=== PATIENT | male | born 1945 | race African-American/Black ===

== ENCOUNTER 2016-10-20 15:50 | Inpatient (IN) | payer MEDICARE, MEDICAID ==
[~2016-10-20] VITALS: Ht 190.5 cm; Wt 68.0 kg
[~2016-10-20 15:50] MED LIST: DOCUSATE SODIU100 MG ORAL; LEVEMIR FL100 UNIT/1 SUBQ; MAGNESIUM OXID400 M1 ORAL; MILK OF MA400 MG/51 ORAL; NOVOLOG100 UNIT/3 SUBQ; NOVOLOG100 UNITS1 SUBQ; TAMSULOSIN HCL0.4 MG ORAL; UNOBMED
[2016-10-20 16:22] VITALS: BP 145/77
[2016-10-20 16:33] LABS: BASOPHILS % (AUTO) 1.7 % (0.0-2.0); EOSINOPHILS % (AUTO) 2.8 % (0.0-3.0); LYMPHOCYTES % (AUTO) 22.9 % (20.0-45.0); MEAN CORPUSCULAR HEMOGLOBIN 30.4 PG (27.0-31.0); MEAN CORPUSCULAR HGB CONC 34.1 G/DL (32.0-36.0); MEAN CORPUSCULAR VOLUME 89 FL (80-99); MEAN PLATELET VOLUME 9.3 FL (6.5-10.1); MONOCYTES % (AUTO) 8.9 % (1.0-10.0); NEUTROPHILS % (AUTO) 63.7 % (45.0-75.0); PLATELET COUNT 196 K/UL (150-450); RED BLOOD COUNT 4.53 M/UL (4.70-6.10); RED CELL DISTRIBUTION WIDTH 13.6 % (11.6-14.8); WHITE BLOOD COUNT 8.8 K/UL (4.8-10.8)
[2016-10-20] MEDS ORDERED: AMIODARONE HCL200 MG ORAL (16:36)
[2016-10-20] MEDS ORDERED: ASPIR 8181 MG ORAL (16:36)
[2016-10-20] MEDS ORDERED: ATORVASTATIN CA10 MG ORAL (16:36)
[2016-10-20] MEDS ORDERED: DIGOXIN0.25 MG/5 PO (16:38)
[2016-10-20] MEDS ORDERED: CRANBERRY TABL1 EACH PO (16:38)
[2016-10-20] MEDS ORDERED: CARVEDILOL6.25 MG ORAL (16:38)
[2016-10-20] MEDS ORDERED: METFORMIN HCL1000 M1 ORAL (16:39)
[2016-10-20] MEDS ORDERED: TAMSULOSIN HCL0.4 MG ORAL (16:39)
[2016-10-20] MEDS ORDERED: MULTIVITAMINS1 EAC8 ORAL (16:40)
[2016-10-20] MEDS ORDERED: TYLENOL PO (16:40)
[2016-10-20] MEDS ORDERED: VITAMIN D400 INTLU ORAL (16:41)
[2016-10-20 16:48] LABS: ALANINE AMINOTRANSFERASE 37 U/L (3-41); ALBUMIN/GLOBULIN RATIO 0.9 (1.0-2.7); ANION GAP 17 (5-15); ASPARTATE AMINO TRANSFERASE 32 U/L (5-40); CALCIUM 9.7 mg/dL (8.6-10.2); CARBON DIOXIDE 22 mEQ/L (20-30); CHLORIDE 88 mEQ/L (98-107); CREATININE 0.7 mg/dL (0.7-1.2); GLOMERULAR FILTRATION RATE > 60 mL/min (>60); HEMOLYSIS 5; MAGNESIUM 1.8 mg/dL (1.7-2.5); POTASSIUM 4.9 mEQ/L (3.4-4.9); SODIUM 127 mEQ/L (135-145)
[2016-10-20 17:50] LABS: APPEARANCE,URINE CLEAR; KETONES,URINE 2+ (NEGATIVE); LEUKOCYTE ESTERASE ,URINE 3+ (NEGATIVE); NITRITE,URINE NEGATIVE (NEGATIVE); PH,URINE 5 (4.5-8.0); PROTEIN,URINE NEGATIVE (NEGATIVE); UROBILINOGEN,URINE NORMAL MG/DL (0.0-1.0)
[2016-10-20 17:54] LABS: BACTERIA,URINE FEW /HPF
[2016-10-20 17:55] LABS: YEAST,URINE MODERATE /HPF
[2016-10-20 18:29] VITALS: BP 132/83
[2016-10-20] MEDS ORDERED: DuoNeb 0.5-3(2.5)mg/3ml neb HHN PRN (19:15)
[2016-10-20] MEDS ORDERED: Ketorolac 30mg Inj IV PRN (19:15)
[2016-10-20] MEDS ORDERED: Mylanta II UD 30ml ORAL PRN (19:15)
[2016-10-20] MEDS ORDERED: Morphine Sulfate 2mg/ml Inj IVP PRN (19:15)
[2016-10-20] MEDS ORDERED: Miralax 17gm pkt ORAL PRN (19:15)
[2016-10-20] MEDS ORDERED: Nitroglycerin Subl 0.4mg tab (Bottle Of 25) SL PRN (19:15)
[2016-10-20 19:47] VITALS: BP 141/82
--- NOTE | 2016-10-20 20:01 | Emergency Room Report ---
History of Present Illness General Chief Complaint: General Complaint Source: Patient, Medical Record Present Illness HPI 71-year-old male presents ED for evaluation. [facility]. Patient blood sugar was high at the [facility]. Patient has history of diabetes. States he is compliant with his medications. States he feels fine. Denies any fevers or chills. Denies any dizziness or weakness. Denies nausea or vomiting. No other aggravating relieving factors. Denies any other associated symptoms Allergies: Coded Allergies: No Known Allergies (Unverified , 03/10/16) Patient History Past Medical History: DM, HTN, COPD, psych hx Past Surgical History: none Pertinent Family History: none Social History: Denies: alcohol use, drug use, smoking Immunizations: UTD Reviewed Nursing Documentation: PMH: Agreed, PSxH: Agreed Nursing Documentation-PMH Past Medical History: No History, Except For Hx Cardiac Problems: Yes - afib, paraplegia Hx Hypertension: Yes Hx COPD: Yes Hx Diabetes: Yes Hx Cancer: No Hx Gastrointestinal Problems: No History Of Psychiatric Problem: Yes - anxiety Hx Neurological Problems: No Review of Systems All Other Systems: negative except mentioned in HPI Physical Exam Vital Signs Date Time Temp Pulse Resp B/P Pulse Ox O2 Delivery O2 Flow Rate FiO2 10/20/16 15:44 98.2 78 20 120/78 98 Room Air Sp02 EP Interpretation: reviewed, normal General Appearance: no apparent distress, alert, GCS 15, non-toxic Head: normocephalic, atraumatic Eyes: bilateral eye PERRL, bilateral eye normal inspection ENT: hearing grossly normal, normal pharynx, no angioedema, normal voice Neck: full range of motion, supple/symm/no masses Respiratory: chest non-tender, lungs clear, normal breath sounds, speaking full sentences Cardiovascular #1: regular rate, rhythm, no edema Cardiovascular #2: 2+ carotid (R), 2+ carotid (L), 2+ radial (R), 2+ radial (L) , 2+ dorsalis pedis (R), 2+ dorsalis pedis (L) Gastrointestinal: normal bowel sounds, non tender, soft, non-distended, no guarding, no rebound Rectal: deferred Genitourinary: normal inspection, no CVA tenderness Musculoskeletal: back normal, gait/station normal, normal range of motion, non- tender Neurologic: alert, oriented x3, responsive, motor strength/tone normal, sensory intact, speech normal Psychiatric: judgement/insight normal, memory normal, mood/affect normal, no suicidal/homicidal ideation Reflexes: 3+ bicep (R), 3+ bicep (L), 3+ tricep (R), 3+ tricep (L), 3+ knee (R) , 3+ knee (L) Skin: normal color, no rash, warm/dry, well hydrated Lymphatic: no adenopathy Medical Decision Making Diagnostic Impression: Primary Impression: Uncontrolled diabetes mellitus Qualified Codes: E13.65 - Other specified diabetes mellitus with hyperglycemia ER Course Hospital Course 71-year-old male presenting to ED with elevated fingerstick Differential diagnoses include: ETOH/drug ingestion, sepsis, DKA Clinical course Patient placed on stretcher. On case monitor. After initial history and physical I ordered labs, IV fluids Labs-glucose greater than 500, Na 127, anion gap mildly elevated, bicarbonate ok , electrolytes ok Insulin given, IV fluids given Case discussed with Dr. Degroot and he agreed to accept the patient to his service for further care and support i. I feel this is a highly complex case requiring extensive working including EKG/Rhythm strip, Xray/CT/US, Blood/urine lab work, repeat exams while in ED, and administration of strong opiates/narcotics for pain control, admission to hospital or close patient follow up. diagnosis - uncontrolled DM admitted to floor in serious condition Labs Test 10/20/16 16:06 10/20/16 17:13 White Blood Count 8.8 K/UL (4.8-10.8) Red Blood Count 4.53 M/UL (4.70-6.10) Hemoglobin 13.8 G/DL (14.2-18.0) Hematocrit 40.4 % (42.0-52.0) Mean Corpuscular Volume 89 FL (80-99) Mean Corpuscular Hemoglobin 30.4 PG (27.0-31.0) Mean Corpuscular Hemoglobin Concent 34.1 G/DL (32.0-36.0) Red Cell Distribution Width 13.6 % (11.6-14.8) Platelet Count 196 K/UL (150-450) Mean Platelet Volume 9.3 FL (6.5-10.1) Neutrophils (%) (Auto) 63.7 % (45.0-75.0) Lymphocytes (%) (Auto) 22.9 % (20.0-45.0) Monocytes (%) (Auto) 8.9 % (1.0-10.0) Eosinophils (%) (Auto) 2.8 % (0.0-3.0) Basophils (%) (Auto) 1.7 % (0.0-2.0) Sodium Level 127 mEQ/L (135-145) Potassium Level 4.9 mEQ/L (3.4-4.9) Chloride Level 88 mEQ/L (98-107) Carbon Dioxide Level 22 mEQ/L (20-30) Anion Gap 17 (5-15) Blood Urea Nitrogen 15 mg/dL (7-23) Creatinine 0.7 mg/dL (0.7-1.2) Estimat Glomerular Filtration Rate > 60 mL/min (>60) Glucose Level 526 mg/dL (74-106) Calcium Level 9.7 mg/dL (8.6-10.2) Magnesium Level 1.8 mg/dL (1.7-2.5) Total Bilirubin 0.2 mg/dL (0.0-1.2) Aspartate Amino Transf (AST/SGOT) 32 U/L (5-40) Alanine Aminotransferase (ALT/SGPT) 37 U/L (3-41) Alkaline Phosphatase 76 U/L (40-129) Total Protein 7.0 g/dL (6.6-8.7) Albumin 3.4 g/dL (3.5-5.2) Globulin 3.6 g/dL Albumin/Globulin Ratio 0.9 (1.0-2.7) Acetone Level Positive-small (NEGATIVE) Urine Color Pale yellow Urine Appearance Clear Urine pH 5 (4.5-8.0) Urine Specific [place] 1.015 (1.005-1.035) Urine Protein Negative (NEGATIVE) Urine Glucose (UA) 4+ (NEGATIVE) Urine Ketones 2+ (NEGATIVE) Urine Occult Blood 3+ (NEGATIVE) Urine Nitrite Negative (NEGATIVE) Urine Bilirubin Negative (NEGATIVE) Urine Urobilinogen Normal MG/DL (0.0-1.0) Urine Leukocyte Esterase 3+ (NEGATIVE) Urine RBC 10-15 /HPF (0 - 0) Urine WBC 5-10 /HPF (0 - 0) Urine Squamous Epithelial Cells None /LPF (NONE/OCC) Urine Bacteria Few /HPF (NONE) Urine Yeast Moderate /HPF (NONE) Last Vital Signs Date Time Temp Pulse Resp B/P Pulse Ox O2 Delivery O2 Flow Rate FiO2 10/20/16 19:47 80 13 141/82 100 Room Air 10/20/16 18:29 98.1 Status: improved Disposition: ADMITTED INPATIENT Condition: Serious Referrals: SANG STEVENS (PCP) FRANKLYN KEYES M.D. Oct 20, 2016 20:01
[2016-10-20] MEDS: Carvedilol 6.25mg Tab ORAL SCH (23:04)
[2016-10-20] MEDS: Tamsulosin 0.4mg cap ORAL SCH (23:04)
[2016-10-20] MEDS: Amiodarone 200mg tab ORAL SCH (23:04)
[2016-10-20] MEDS: Heparin 5000 units/ml inj SUBQ SCH (23:07)
[2016-10-20] MEDS: NovoLOG Insulin Flexpen SUBQ SCH (23:09)
[2016-10-21] VITALS: BP 135/76
[2016-10-21] MEDS: Levemir Flexpen SUBQ SCH ×2 (00:34→09:08)
[2016-10-21] MEDS: NovoLOG Insulin Flexpen SUBQ SCH ×6 (06:20→21:16)
[2016-10-21 06:37] LABS: BASOPHILS % (AUTO) 1.4 % (0.0-2.0); EOSINOPHILS % (AUTO) 2.6 % (0.0-3.0); MEAN CORPUSCULAR HEMOGLOBIN 29.5 PG (27.0-31.0); MEAN CORPUSCULAR HGB CONC 33.3 G/DL (32.0-36.0); MEAN CORPUSCULAR VOLUME 89 FL (80-99); MEAN PLATELET VOLUME 10.4 FL (6.5-10.1); MONOCYTES % (AUTO) 7.5 % (1.0-10.0); NEUTROPHILS % (AUTO) 59.4 % (45.0-75.0); PLATELET COUNT 222 K/UL (150-450); RED BLOOD COUNT 4.46 M/UL (4.70-6.10); RED CELL DISTRIBUTION WIDTH 13.2 % (11.6-14.8); WHITE BLOOD COUNT 8.1 K/UL (4.8-10.8)
[2016-10-21 06:57] LABS: ALANINE AMINOTRANSFERASE 32 U/L (3-41); ALBUMIN/GLOBULIN RATIO 0.9 (1.0-2.7); ANION GAP 15 (5-15); ASPARTATE AMINO TRANSFERASE 26 U/L (5-40); CALCIUM 8.7 mg/dL (8.6-10.2); CARBON DIOXIDE 21 mEQ/L (20-30); CHLORIDE 97 mEQ/L (98-107); CHOLESTEROL 122 mg/dL (< 200); CHOLESTEROL/HDL RATIO 2.6 (3.3-4.4); CREATININE 0.6 mg/dL (0.7-1.2); GLOMERULAR FILTRATION RATE > 60 mL/min (>60); HEMOLYSIS 2; LDL CHOLESTEROL (CALC.) 57 mg/dL (60-99); POTASSIUM 4.2 mEQ/L (3.4-4.9); SODIUM 133 mEQ/L (135-145); TOTAL PROTEIN 6.5 g/dL (6.6-8.7)
[2016-10-21 06:59] LABS: THYROID STIMULATING HORMONE 0.896 uIU/mL (0.300-4.500)
[2016-10-21 07:33] LABS: HEMOGLOBIN A1C 16.9 % (< 6.0)
[2016-10-21 08:00] VITALS: BP 111/68
[2016-10-21] MEDS: Carvedilol 6.25mg Tab ORAL SCH ×2 (09:06→21:00)
[2016-10-21] MEDS: Amiodarone 200mg tab ORAL SCH ×2 (09:06→21:00)
[2016-10-21] MEDS: Aspirin EC 81mg tab ORAL SCH (09:06)
[2016-10-21] MEDS: Heparin 5000 units/ml inj SUBQ SCH ×2 (09:07→21:15)
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
[2016-10-21 12:00] VITALS: BP 132/82
[2016-10-21] MEDS ORDERED: Levemir Flexpen SUBQ SCH ×2 (12:00→21:00)
--- NOTE | 2016-10-21 13:57 | History and Physical ---
History of Present Illness General Date patient seen: Oct 21, 2016 Reason for Hospitalization: General Complaint Present Illness HPI 71-year-old male with hx of DM, correction pt presents ED for evaluation of high t blood sugar . States he is compliant with his medications. ( he is not) Denies any dizziness or weakness. Denies nausea or vomiting. No other aggravating relieving factors. He is admitted for uncontrolled DM and severe hyponatremia. Allergies: Coded Allergies: No Known Allergies (Unverified , 03/10/16) Medication History Scheduled Amiodarone Hcl* (Cordarone*), 200 MG ORAL TWICE A DAY, (Reported) Aspirin* (Aspir 81*), 81 MG ORAL DAILY, (Reported) Atorvastatin Calcium* (Lipitor*), 10 MG ORAL BEDTIME, (Reported) Carvedilol* (Carvedilol*), 6.25 MG ORAL BID, (Reported) Cranberry Conc/C/Bacill Coag (Cranberry Tablet), 450 MG PO TWICE A DAY, ( Reported) Digoxin* (Digoxin*), 0.25 MG PO DAILY, (Reported) Metformin Hcl* (Metformin Hcl*), 1,000 MG ORAL BID, (Reported) Multivitamin With Minerals (Multivitamins With Minerals*), 1 TAB ORAL DAILY, ( Reported) Tamsulosin Hcl (Tamsulosin Hcl*), 0.4 MG ORAL BEDTIME, (Reported) Vitamin D (Vitamin D3), 5,000 UNITS ORAL DAILY, (Reported) Scheduled PRN Docusate Sodium* (Docusate Sodium*), 100 MG ORAL TWICE A DAY PRN for Constipation, (Reported) Magnesium Hydroxide* (Milk Of Magnesia*), 30 ML ORAL DAILY PRN for Constipation, (Reported) [Tylenol], 650 MG PO PRN PRN for Fever/Headache/Mild Pain, (Reported) Discontinued Medications Insulin Aspart (Novolog Flexpen), SUBQ AC+HS, (Reported) Discontinued Reason: Therapy completed Insulin Aspart* (Novolog*), 6 SUBQ AC, (Reported) Discontinued Reason: Therapy completed Insulin Detemir (Levemir Flexpen), 18 SUBQ Q12HR, (Reported) Discontinued Reason: Therapy completed Magnesium Oxide (Magnesium Oxide), 400 MG ORAL THREE TIMES A DAY PRN for Constipation, (Reported) Discontinued Reason: Therapy completed Tamsulosin Hcl (Tamsulosin Hcl*), 0.4 MG ORAL Q12HR, (Reported) Discontinued Reason: Therapy completed Unable to Obtain Medications (Unable To Obtain Meds), (Reported) Discontinued Reason: Therapy completed Patient History Healthcare decision maker Resuscitation status Full Code Advanced Directive on File Past Medical/Surgical History Past Medical/Surgical History: (1) Cardiomyopathy (2) CAD (coronary artery disease) (3) Uncontrolled diabetes mellitus Review of Systems Constitutional: Reports: no symptoms Eye: Reports: no symptoms Physical Exam General Appearance: cachetic Lines, tubes and drains: peripheral HEENT: normocephalic, atraumatic Neck: non-tender, normal alignment Respiratory/Chest: chest wall non-tender, lungs clear Cardiovascular/Chest: normal peripheral pulses, normal rate Abdomen: non tender Genitourinary/Rectal: normal genital exam Extremities: normal range of motion Last 24 Hour Vital Signs Date Time Temp Pulse Resp B/P Pulse Ox O2 Delivery O2 Flow Rate FiO2 10/21/16 12:00 97.3 76 20 132/82 100 Room Air 10/21/16 10:12 82 18 Room Air 21 10/21/16 09:06 82 111/68 10/21/16 08:00 97.5 82 20 111/68 99 Room Air 10/21/16 00:00 97.4 77 19 135/76 100 Room Air 10/20/16 23:04 74 129/78 10/20/16 20:45 98.1 80 13 141/82 100 Room Air 10/20/16 19:47 80 13 141/82 100 Room Air 10/20/16 18:29 98.1 78 18 132/83 99 Room Air 10/20/16 16:22 74 17 145/77 100 Room Air 10/20/16 15:44 98.2 78 20 120/78 98 Room Air Intake and Output 10/20/16 10/21/16 19:00 07:00 Intake Total 2000 ml 800 ml Balance 2000 ml 800 ml Intake IV Total 2000 ml 800 ml # Voids 1 3 # Bowel Movements 1 Laboratory Tests Test 10/20/16 16:06 10/20/16 17:13 10/21/16 06:00 White Blood Count 8.8 K/UL (4.8-10.8) 8.1 K/UL (4.8-10.8) Red Blood Count 4.53 M/UL (4.70-6.10) L 4.46 M/UL (4.70-6.10) L Hemoglobin 13.8 G/DL (14.2-18.0) L 13.2 G/DL (14.2-18.0) L Hematocrit 40.4 % (42.0-52.0) L 39.6 % (42.0-52.0) L Mean Corpuscular Volume 89 FL (80-99) 89 FL (80-99) Mean Corpuscular Hemoglobin 30.4 PG (27.0-31.0) 29.5 PG (27.0-31.0) Mean Corpuscular Hemoglobin Concent 34.1 G/DL (32.0-36.0) 33.3 G/DL (32.0-36.0) Red Cell Distribution Width 13.6 % (11.6-14.8) 13.2 % (11.6-14.8) Platelet Count 196 K/UL (150-450) 222 K/UL (150-450) Mean Platelet Volume 9.3 FL (6.5-10.1) 10.4 FL (6.5-10.1) H Neutrophils (%) (Auto) 63.7 % (45.0-75.0) 59.4 % (45.0-75.0) Lymphocytes (%) (Auto) 22.9 % (20.0-45.0) 29.0 % (20.0-45.0) Monocytes (%) (Auto) 8.9 % (1.0-10.0) 7.5 % (1.0-10.0) Eosinophils (%) (Auto) 2.8 % (0.0-3.0) 2.6 % (0.0-3.0) Basophils (%) (Auto) 1.7 % (0.0-2.0) 1.4 % (0.0-2.0) Sodium Level 127 mEQ/L (135-145) L 133 mEQ/L (135-145) L Potassium Level 4.9 mEQ/L (3.4-4.9) 4.2 mEQ/L (3.4-4.9) Chloride Level 88 mEQ/L (98-107) L 97 mEQ/L (98-107) L Carbon Dioxide Level 22 mEQ/L (20-30) 21 mEQ/L (20-30) Anion Gap 17 (5-15) H 15 (5-15) Blood Urea Nitrogen 15 mg/dL (7-23) 12 mg/dL (7-23) Creatinine 0.7 mg/dL (0.7-1.2) 0.6 mg/dL (0.7-1.2) L Estimat Glomerular Filtration Rate > 60 mL/min (>60) > 60 mL/min (>60) Glucose Level 526 mg/dL (74-106) *H 389 mg/dL (74-106) #H Calcium Level 9.7 mg/dL (8.6-10.2) 8.7 mg/dL (8.6-10.2) Magnesium Level 1.8 mg/dL (1.7-2.5) Total Bilirubin 0.2 mg/dL (0.0-1.2) 0.3 mg/dL (0.0-1.2) Aspartate Amino Transf (AST/SGOT) 32 U/L (5-40) 26 U/L (5-40) Alanine Aminotransferase (ALT/SGPT) 37 U/L (3-41) 32 U/L (3-41) Alkaline Phosphatase 76 U/L (40-129) 66 U/L (40-129) Total Protein 7.0 g/dL (6.6-8.7) 6.5 g/dL (6.6-8.7) L Albumin 3.4 g/dL (3.5-5.2) L 3.1 g/dL (3.5-5.2) L Globulin 3.6 g/dL 3.4 g/dL Albumin/Globulin Ratio 0.9 (1.0-2.7) L 0.9 (1.0-2.7) L Acetone Level Positive-small (NEGATIVE) Urine Color Pale yellow Urine Appearance Clear Urine pH 5 (4.5-8.0) Urine Specific [place] 1.015 (1.005-1.035) Urine Protein Negative (NEGATIVE) Urine Glucose (UA) 4+ (NEGATIVE) H Urine Ketones 2+ (NEGATIVE) H Urine Occult Blood 3+ (NEGATIVE) H Urine Nitrite Negative (NEGATIVE) Urine Bilirubin Negative (NEGATIVE) Urine Urobilinogen Normal MG/DL (0.0-1.0) Urine Leukocyte Esterase 3+ (NEGATIVE) H Urine RBC 10-15 /HPF (0 - 0) H Urine WBC 5-10 /HPF (0 - 0) H Urine Squamous Epithelial Cells None /LPF (NONE/OCC) Urine Bacteria Few /HPF (NONE) Urine Yeast Moderate /HPF (NONE) H Hemoglobin A1c 16.9 % (< 6.0) H Triglycerides Level 88 mg/dL (< 150) Cholesterol Level 122 mg/dL (< 200) LDL Cholesterol 57 mg/dL (60-99) L HDL Cholesterol 47 mg/dL (> 60) Cholesterol/HDL Ratio 2.6 (3.3-4.4) L Thyroid Stimulating Hormone (TSH) 0.896 uIU/mL (0.300-4.500) Microbiology Date/Time Source Procedure Growth Status 10/20/16 17:13 Urine,Clean Catch Urine Culture - Preliminary NO GROWTH Resulted Height (Feet): 6 Height (Inches): 3.00 Weight (Pounds): 150 Medications Current Medications Medications (Trade) Dose Ordered Sig/Randell Route PRN Reason Start Time Stop Time Status Last Admin Dose Admin Acetaminophen (Tylenol) 650 mg Q4H PRN ORAL fever 10/20/16 19:15 11/19/16 19:14 Al Hydroxide/Mg Hydroxide (Mylanta II) 30 ml Q6H PRN ORAL dyspepsia 10/20/16 19:15 11/19/16 19:14 Albuterol/ Ipratropium (DuoNeb 0.5-3(2.5)mg/3ml) 3 ml EVERY 4 HOURS PRN HHN Shortness of Breath 10/20/16 19:15 10/25/16 19:14 Amiodarone HCl (Cordarone) 200 mg Q12HR ORAL 10/20/16 22:00 11/19/16 21:59 10/21/16 09:06 Aspirin (Ecotrin) 81 mg DAILY ORAL 10/21/16 09:00 11/20/16 08:59 10/21/16 09:06 Atorvastatin Calcium (Lipitor) 10 mg BEDTIME ORAL 10/20/16 22:00 11/19/16 21:59 10/20/16 23:03 Carvedilol (Coreg) 6.25 mg Q12HR ORAL 10/20/16 22:00 11/19/16 21:59 10/21/16 09:06 Clotrimazole (Lotrimin) 1 applic EVERY 12 HOURS TOPIC 10/21/16 21:00 11/20/16 20:59 Dextrose (Dextrose 50%) STAT PRN IV Hypoglycemia 10/21/16 12:00 11/20/16 11:59 Heparin Sodium (Porcine) (Heparin 5000 units/ml) 5,000 units EVERY 12 HOURS SUBQ 10/20/16 21:00 11/19/16 20:59 10/21/16 09:07 Insulin Aspart (NovoLOG) BEFORE MEALS AND HS SUBQ 10/20/16 22:00 11/19/16 21:59 10/21/16 12:25 Insulin Aspart (NovoLOG) 5 units NOVOTIAC SUBQ 10/21/16 11:50 11/20/16 11:49 10/21/16 12:26 Insulin Detemir (Levemir) 20 units EVERY 12 HOURS SUBQ 10/21/16 21:00 11/20/16 20:59 Ketorolac Tromethamine (Toradol 30mg) 30 mg EVERY 6 HOURS PRN IV moderate pain 4-6 10/20/16 19:15 10/25/16 19:14 Morphine Sulfate (Morphine Sulfate) 2 mg EVERY 4 HOURS PRN IVP severe pain 7-10 10/20/16 19:15 10/27/16 19:14 Nitroglycerin (Ntg) 0.4 mg Q5M X 3 DOSES PRN SL Prn Chest Pain 10/20/16 19:15 11/19/16 19:14 Ondansetron HCl (Zofran) 4 mg Q6H PRN IVP Nausea & Vomiting 10/20/16 19:15 11/19/16 19:14 Polyethylene Glycol (Miralax) 17 gm HSPRN PRN ORAL Constipation 10/20/16 19:15 11/19/16 19:14 Sodium Chloride (Sodium Chloride 1000ml bag) 1,000 ml @ 100 mls/hr Q10H IVLG 10/20/16 20:00 11/19/16 19:59 10/20/16 23:07 Tamsulosin HCl 0.4 mg 0.4 mg BEDTIME ORAL 10/20/16 21:00 11/19/16 20:59 10/20/16 23:04 Temazepam (Restoril) 15 mg HSPRN PRN ORAL Insomnia 10/20/16 19:15 10/27/16 19:14 Assessment/Plan Problem List: (1) Uncontrolled diabetes mellitus ICD Codes: E11.65 - Type 2 diabetes mellitus with hyperglycemia SNOMED: 414566194 Qualifiers: Qualified Codes: E13.65 - Other specified diabetes mellitus with hyperglycemia (2) Hyponatremia ICD Codes: E87.1 - Hypo-osmolality and hyponatremia SNOMED: 83007843 (3) Protein-calorie malnutrition, severe ICD Codes: E43 - Unspecified severe protein-calorie malnutrition SNOMED: 996380715 (4) Anemia ICD Codes: D64.9 - Anemia, unspecified SNOMED: 621213481 (5) CAD (coronary artery disease) ICD Codes: I25.10 - Atherosclerotic heart disease of [place] coronary artery without angina pectoris SNOMED: 28636718 (6) Cardiomyopathy ICD Codes: I42.9 - Cardiomyopathy, unspecified SNOMED: 08380231 Assessment/Plan endo evaluation hyponatremia w/u anemai w/u JUDIT RUSSELL Oct 21, 2016 13:57
[2016-10-21 16:00] VITALS: BP 110/78
[2016-10-21 19:48] VITALS: BP 106/69
[2016-10-21] MEDS: Tamsulosin 0.4mg cap ORAL SCH (21:00)
[2016-10-22] MEDS ORDERED: Levemir Flexpen SUBQ ONE (00:15)
[2016-10-22 04:00] VITALS: BP 121/75
[2016-10-22] MEDS: NovoLOG Insulin Flexpen SUBQ SCH ×7 (06:30→21:03)
[2016-10-22 06:39] LABS: PROTHROMBIN TIME 10.1 SEC (9.30-11.50)
[2016-10-22 07:14] LABS: BASOPHILS % (AUTO) 1.2 % (0.0-2.0); EOSINOPHILS % (AUTO) 3.2 % (0.0-3.0); MEAN CORPUSCULAR HEMOGLOBIN 30.2 PG (27.0-31.0); MEAN CORPUSCULAR HGB CONC 33.8 G/DL (32.0-36.0); MEAN CORPUSCULAR VOLUME 89 FL (80-99); MEAN PLATELET VOLUME 9.2 FL (6.5-10.1); MONOCYTES % (AUTO) 6.8 % (1.0-10.0); NEUTROPHILS % (AUTO) 45.8 % (45.0-75.0); PLATELET COUNT 182 K/UL (150-450); RED BLOOD COUNT 4.23 M/UL (4.70-6.10); RED CELL DISTRIBUTION WIDTH 13.6 % (11.6-14.8); WHITE BLOOD COUNT 7.8 K/UL (4.8-10.8)
[2016-10-22 08:50] LABS: ERYTHROCYTE SEDIMENTATION RATE 34 MM/HR (0-20)
[2016-10-22] MEDS: Aspirin EC 81mg tab ORAL SCH (09:06)
[2016-10-22] MEDS: Carvedilol 6.25mg Tab ORAL SCH ×2 (09:09→20:55)
[2016-10-22] MEDS: Amiodarone 200mg tab ORAL SCH ×2 (09:09→20:55)
[2016-10-22] MEDS: Heparin 5000 units/ml inj SUBQ SCH ×2 (09:10→21:04)
[2016-10-22] MEDS: Levemir Flexpen SUBQ SCH ×2 (09:14→21:02)
[2016-10-22 10:58] LABS: ANISOCYTOSIS 1+; BAND NEUTROPHILS % (MANUAL) 0 % (0-8); BASOPHILS % (MANUAL) 0 % (0-2); EOSINOPHILS % (MANUAL) 2 % (0-3); LYMPHOCYTES % (MANUAL) 46 % (20-45); NEUTROPHILS % (MANUAL) 48 % (45-75); PLATELET ESTIMATE ADEQUATE; PLATELET MORPHOLOGY NORMAL; TOTAL CELLS COUNTED 100
[2016-10-22 11:30] LABS: PATH BLOOD SMEAR/OMC SENT TO PATHOLOGIST; RETICULOCYTE COUNT 0.9 % (0.0-2.0)
[2016-10-22 12:09] VITALS: BP 119/80
--- NOTE | 2016-10-22 15:42 | Pulmonology Progress Note ---
Assessment/Plan Problems: (1) increased CEA (2) Uncontrolled diabetes mellitus (3) Hyponatremia (4) Protein-calorie malnutrition, severe (5) Anemia (6) CAD (coronary artery disease) (7) Cardiomyopathy Assessment/Plan CT abd/pelvis to rule out malignancy GI evaluation endo consult requested. Subjective ROS Limited/Unobtainable: No Interval Events: no new complains Allergies: Coded Allergies: No Known Allergies (Unverified , 03/10/16) Objective Last 24 Hour Vital Signs Date Time Temp Pulse Resp B/P Pulse Ox O2 Delivery O2 Flow Rate FiO2 10/22/16 12:09 97.9 76 19 119/80 99 Room Air 10/22/16 10:03 80 18 Room Air 10/22/16 09:09 81 126/87 10/22/16 04:00 96.6 74 20 121/75 100 Room Air 10/21/16 20:22 76 18 Room Air 10/21/16 19:48 97.9 78 18 106/69 99 Room Air 10/21/16 16:00 97.3 80 20 110/78 98 Room Air Intake and Output 10/21/16 10/22/16 19:00 07:00 Intake Total 700 ml 450 ml Balance 700 ml 450 ml Intake Oral 400 ml 450 ml IV Total 300 ml # Voids 6 2 # Bowel Movements 5 1 General Appearance: cachetic HEENT: normocephalic, atraumatic Respiratory/Chest: chest wall non-tender, lungs clear Cardiovascular: normal peripheral pulses, normal rate Abdomen: normal bowel sounds, soft, non tender Genitourinary: normal external genitalia Extremities: no cyanosis Skin: no rash Microbiology Date/Time Source Procedure Growth Status 10/20/16 19:15 Nasal Nares MRSA Culture - Final NO METHICILLIN RESISTANT STAPH AUREUS... Complete 10/20/16 17:13 Urine,Clean Catch Urine Culture - Preliminary Resulted 10/20/16 19:15 Rectum VRE Culture - Final NO VANCOMYCIN RESISTANT ENTEROCOCCUS ... Complete Laboratory Tests 10/22/16 04:30: White Blood Count 7.8, Red Blood Count 4.23L, Hemoglobin 12.8L, Hematocrit 37.7L , Mean Corpuscular Volume 89, Mean Corpuscular Hemoglobin 30.2, Mean Corpuscular Hemoglobin Concent 33.8, Red Cell Distribution Width 13.6, Platelet Count 182, Mean Platelet Volume 9.2, Neutrophils (%) (Auto) 45.8, Lymphocytes (% ) (Auto) 43.0, Monocytes (%) (Auto) 6.8, Eosinophils (%) (Auto) 3.2H, Basophils (%) (Auto) 1.2, Differential Total Cells Counted 100, Neutrophils % (Manual) 48 , Lymphocytes % (Manual) 46H, Monocytes % (Manual) 4, Eosinophils % (Manual) 2, Basophils % (Manual) 0, Band Neutrophils 0, Platelet Estimate Adequate, Platelet Morphology Normal, Anisocytosis 1+, Erythrocyte Sedimentation Rate 34H , Reticulocyte Count 0.9, Prothrombin Time 10.1, Prothromb Time International Ratio 1.0, Activated Partial Thromboplast Time 28, Iron Level 76, Total Iron Binding Capacity 173L, Percent Iron Saturation 44, Unsaturated Iron Binding 97L , Lactate Dehydrogenase 216, Carcinoembryonic Antigen 15.0H, Vitamin B12 Level 1126H, Folate [Pending] Current Medications Medications (Trade) Dose Ordered Sig/Randell Route PRN Reason Start Time Stop Time Status Last Admin Dose Admin Acetaminophen (Tylenol) 650 mg Q4H PRN ORAL fever 10/20/16 19:15 11/19/16 19:14 Al Hydroxide/Mg Hydroxide (Mylanta II) 30 ml Q6H PRN ORAL dyspepsia 10/20/16 19:15 11/19/16 19:14 Albuterol/ Ipratropium (DuoNeb 0.5-3(2.5)mg/3ml) 3 ml EVERY 4 HOURS PRN HHN Shortness of Breath 10/20/16 19:15 10/25/16 19:14 Amiodarone HCl (Cordarone) 200 mg Q12HR ORAL 10/20/16 22:00 11/19/16 21:59 10/22/16 09:09 Aspirin (Ecotrin) 81 mg DAILY ORAL 10/21/16 09:00 11/20/16 08:59 10/22/16 09:06 Atorvastatin Calcium (Lipitor) 10 mg BEDTIME ORAL 10/20/16 22:00 11/19/16 21:59 10/20/16 23:03 Carvedilol (Coreg) 6.25 mg Q12HR ORAL 10/20/16 22:00 11/19/16 21:59 10/22/16 09:09 Clotrimazole (Lotrimin) 1 applic EVERY 12 HOURS TOPIC 10/21/16 21:00 11/20/16 20:59 10/22/16 09:15 Dextrose (Dextrose 50%) STAT PRN IV Hypoglycemia 10/21/16 12:00 11/20/16 11:59 Heparin Sodium (Porcine) (Heparin 5000 units/ml) 5,000 units EVERY 12 HOURS SUBQ 10/20/16 21:00 11/19/16 20:59 10/22/16 09:10 Insulin Aspart (NovoLOG) BEFORE MEALS AND HS SUBQ 10/20/16 22:00 11/19/16 21:59 10/22/16 12:24 Insulin Aspart (NovoLOG) 5 units NOVOTIAC SUBQ 10/21/16 11:50 11/20/16 11:49 10/22/16 12:24 Insulin Detemir (Levemir) 25 units EVERY 12 HOURS SUBQ 10/22/16 09:00 11/21/16 08:59 10/22/16 09:14 Ketorolac Tromethamine (Toradol 30mg) 30 mg EVERY 6 HOURS PRN IV moderate pain 4-6 10/20/16 19:15 10/25/16 19:14 Morphine Sulfate (Morphine Sulfate) 2 mg EVERY 4 HOURS PRN IVP severe pain 7-10 10/20/16 19:15 10/27/16 19:14 Nitroglycerin (Ntg) 0.4 mg Q5M X 3 DOSES PRN SL Prn Chest Pain 10/20/16 19:15 11/19/16 19:14 Ondansetron HCl (Zofran) 4 mg Q6H PRN IVP Nausea & Vomiting 10/20/16 19:15 11/19/16 19:14 Polyethylene Glycol (Miralax) 17 gm HSPRN PRN ORAL Constipation 10/20/16 19:15 11/19/16 19:14 Sodium Chloride (Sodium Chloride 1000ml bag) 1,000 ml @ 100 mls/hr Q10H IVLG 10/20/16 20:00 11/19/16 19:59 10/21/16 17:24 Tamsulosin HCl 0.4 mg 0.4 mg BEDTIME ORAL 10/20/16 21:00 11/19/16 20:59 10/20/16 23:04 Temazepam (Restoril) 15 mg HSPRN PRN ORAL Insomnia 10/20/16 19:15 10/27/16 19:14 JUDIT RUSSELL Oct 22, 2016 15:42
--- NOTE | 2016-10-22 15:59 | GI Initial Consult Note ---
History of Present Illness General Date patient seen: Oct 22, 2016 Time patient seen: 15:54 Reason for Hospitalization: General Complaint Referring physician: JUDIT MAHAN Reason for Consultation: ELEVATED CEA Present Illness HPI 71-year-old male presents ED for evaluation. Patient resides in assisted. Patient blood sugar was high at the assisted. Patient has history of diabetes. States he is compliant with his medications. States he feels fine. Denies any fevers or chills. Denies any dizziness or weakness. Denies nausea or vomiting. No other aggravating relieving factors. Denies any other associated symptoms GI Consult. HPI as noted above. GI consulted for elevated CEA. Pt seen on floor, awake A&Ox4 NAD with mild agitation and non compliancy. Refused any procedures and wishes to be sent home. Pt presents today with mild anemia and elevated CEA. Denies any N/V/D. Denies any history of endoscopic procedures. Home Meds Reported Medications Vitamin D (Vitamin D3) 400 Unit Tablet, 5000 UNITS ORAL DAILY, TAB 10/20/16 [Tylenol] No Conflict Check, 650 MG PO PRN Y for Fever/Headache/Mild Pain 10/20/16 Multivitamin With Minerals (MULTIVITAMINS WITH MINERALS*) 1 Each Tablet, 1 TAB ORAL DAILY, TAB 10/20/16 Metformin Hcl* (METFORMIN HCL*) 1,000 Mg Tablet, 1000 MG ORAL BID, TAB 10/20/16 Tamsulosin Hcl (TAMSULOSIN HCL*) 0.4 Mg Cap.er.24h, 0.4 MG ORAL BEDTIME, CAP 10/20/16 Digoxin* (DIGOXIN*) 0.25 Mg/5 Ml Solution, 0.25 MG PO DAILY, ML 10/20/16 Cranberry Conc/C/Bacill Coag (CRANBERRY TABLET) 1 Each Tablet, 450 MG PO TWICE A DAY, TAB 10/20/16 Carvedilol* (CARVEDILOL*) 6.25 Mg Tablet, 6.25 MG ORAL BID, TAB 10/20/16 Atorvastatin Calcium* (LIPITOR*) 10 Mg Tablet, 10 MG ORAL BEDTIME, TAB 10/20/16 Aspirin* (ASPIR 81*) 81 Mg Tablet.dr, 81 MG ORAL DAILY, TAB 10/20/16 Amiodarone Hcl* (CORDARONE*) 200 Mg Tablet, 200 MG ORAL TWICE A DAY, TAB 10/20/16 Magnesium Hydroxide* (MILK OF MAGNESIA*) 400 Mg/5 Ml Oral.susp, 30 ML ORAL DAILY Y for Constipation, ML 03/16/16 Docusate Sodium* (DOCUSATE SODIUM*) 100 Mg Capsule, 100 MG ORAL TWICE A DAY Y for Constipation, CAP 03/16/16 Discontinued Reported Medications Tamsulosin Hcl (TAMSULOSIN HCL*) 0.4 Mg Cap.er.24h, 0.4 MG ORAL Q12HR, CAP 03/16/16 Magnesium Oxide (MAGNESIUM OXIDE) 400 Mg Tablet, 400 MG ORAL THREE TIMES A DAY Y for Constipation, #30 TAB 0 Refills 03/16/16 Insulin Detemir (LEVEMIR FLEXPEN) 100 Unit/1 Ml Insuln.pen, 18 SUBQ Q12HR, #300 UNITS 0 Refills 03/16/16 Insulin Aspart* (NOVOLOG*) 100 Unit/1 Ml Insuln.pen, 6 SUBQ AC, #1 EA 0 Refills 03/16/16 Insulin Aspart (Novolog Flexpen) 100 Unit/1 Ml Insuln.pen, SUBQ AC+HS 03/16/16 Unable to Obtain Medications (UNABLE TO OBTAIN MEDS) 1 Ea Ea 03/11/16 Med list reviewed/reconciled: Yes Allergies: Coded Allergies: No Known Allergies (Unverified , 03/10/16) Patient History History Provided By: Patient, Medical Record PMH Narrative Past Medical History: DM, HTN, COPD, psych hx Past Surgical History: none Pertinent Family History: none Social History: Denies: alcohol use, drug use, smoking Immunizations: UTD Reviewed Nursing Documentation: PMH: Agreed, PSxH: Agreed Nursing Documentation-PM Past Medical History: No History, Except For Hx Cardiac Problems: Yes - afib, paraplegia Hx Hypertension: Yes Hx COPD: Yes Hx Diabetes: Yes Hx Cancer: No Hx Gastrointestinal Problems: No History Of Psychiatric Problem: Yes - anxiety Hx Neurological Problems: No Review of Systems All Other Systems: negative except mentioned in HPI Physical Exam Vital Signs Date Time Temp Pulse Resp B/P Pulse Ox O2 Delivery O2 Flow Rate FiO2 10/20/16 15:44 98.2 78 20 120/78 98 Room Air 10/21/16 10:12 21 Sp02 EP Interpretation: reviewed Labs Laboratory Tests Test 10/22/16 04:30 White Blood Count 7.8 K/UL (4.8-10.8) Red Blood Count 4.23 M/UL (4.70-6.10) L Hemoglobin 12.8 G/DL (14.2-18.0) L Hematocrit 37.7 % (42.0-52.0) L Mean Corpuscular Volume 89 FL (80-99) Mean Corpuscular Hemoglobin 30.2 PG (27.0-31.0) Mean Corpuscular Hemoglobin Concent 33.8 G/DL (32.0-36.0) Red Cell Distribution Width 13.6 % (11.6-14.8) Platelet Count 182 K/UL (150-450) Mean Platelet Volume 9.2 FL (6.5-10.1) Neutrophils (%) (Auto) 45.8 % (45.0-75.0) Lymphocytes (%) (Auto) 43.0 % (20.0-45.0) Monocytes (%) (Auto) 6.8 % (1.0-10.0) Eosinophils (%) (Auto) 3.2 % (0.0-3.0) H Basophils (%) (Auto) 1.2 % (0.0-2.0) Differential Total Cells Counted 100 Neutrophils % (Manual) 48 % (45-75) Lymphocytes % (Manual) 46 % (20-45) H Monocytes % (Manual) 4 % (1-10) Eosinophils % (Manual) 2 % (0-3) Basophils % (Manual) 0 % (0-2) Band Neutrophils 0 % (0-8) Platelet Estimate Adequate Platelet Morphology Normal Anisocytosis 1+ Erythrocyte Sedimentation Rate 34 MM/HR (0-20) H Reticulocyte Count 0.9 % (0.0-2.0) Prothrombin Time 10.1 SEC (9.30-11.50) Prothromb Time International Ratio 1.0 (0.9-1.1) Activated Partial Thromboplast Time 28 SEC (23-33) Iron Level 76 ug/dL (59-158) Total Iron Binding Capacity 173 ug/dL (250-400) L Percent Iron Saturation 44 % (15-50) Unsaturated Iron Binding 97 ug/dL (112-346) L Lactate Dehydrogenase 216 U/L (135-230) Carcinoembryonic Antigen 15.0 ng/mL H Vitamin B12 Level 1126 pg/mL (211-946) H Folate Pending General Appearance: well appearing, no apparent distress, alert Head: normocephalic EENT: normal ENT inspection Neck: full range of motion, supple Respiratory: normal breath sounds, no respiratory distress Cardiovascular: normal rate Gastrointestinal: normal inspection, non tender, soft, normal bowel sounds Rectal: normal exam Musculoskeletal: normal inspection, back normal Neurologic: normal inspection, alert, oriented x3, responsive Psychiatric: normal inspection, judgement/insight normal, memory normal Skin: normal inspection, normal color, no rash, normal turgor Lymphatic: normal inspection, no adenopathy Current Medications Current Medications Medications (Trade) Dose Ordered Sig/Randell Route PRN Reason Start Time Stop Time Status Last Admin Dose Admin Acetaminophen (Tylenol) 650 mg Q4H PRN ORAL fever 10/20/16 19:15 11/19/16 19:14 Al Hydroxide/Mg Hydroxide (Mylanta II) 30 ml Q6H PRN ORAL dyspepsia 10/20/16 19:15 11/19/16 19:14 Albuterol/ Ipratropium (DuoNeb 0.5-3(2.5)mg/3ml) 3 ml EVERY 4 HOURS PRN HHN Shortness of Breath 10/20/16 19:15 10/25/16 19:14 Amiodarone HCl (Cordarone) 200 mg Q12HR ORAL 10/20/16 22:00 11/19/16 21:59 10/22/16 09:09 Aspirin (Ecotrin) 81 mg DAILY ORAL 10/21/16 09:00 11/20/16 08:59 10/22/16 09:06 Atorvastatin Calcium (Lipitor) 10 mg BEDTIME ORAL 10/20/16 22:00 11/19/16 21:59 10/20/16 23:03 Carvedilol (Coreg) 6.25 mg Q12HR ORAL 10/20/16 22:00 11/19/16 21:59 10/22/16 09:09 Clotrimazole (Lotrimin) 1 applic EVERY 12 HOURS TOPIC 10/21/16 21:00 11/20/16 20:59 10/22/16 09:15 Dextrose (Dextrose 50%) STAT PRN IV Hypoglycemia 10/21/16 12:00 11/20/16 11:59 Heparin Sodium (Porcine) (Heparin 5000 units/ml) 5,000 units EVERY 12 HOURS SUBQ 10/20/16 21:00 11/19/16 20:59 10/22/16 09:10 Insulin Aspart (NovoLOG) BEFORE MEALS AND HS SUBQ 10/20/16 22:00 11/19/16 21:59 10/22/16 12:24 Insulin Aspart (NovoLOG) 5 units NOVOTIAC SUBQ 10/21/16 11:50 11/20/16 11:49 10/22/16 12:24 Insulin Detemir (Levemir) 25 units EVERY 12 HOURS SUBQ 10/22/16 09:00 11/21/16 08:59 10/22/16 09:14 Ketorolac Tromethamine (Toradol 30mg) 30 mg EVERY 6 HOURS PRN IV moderate pain 4-6 10/20/16 19:15 10/25/16 19:14 Morphine Sulfate (Morphine Sulfate) 2 mg EVERY 4 HOURS PRN IVP severe pain 7-10 10/20/16 19:15 10/27/16 19:14 Nitroglycerin (Ntg) 0.4 mg Q5M X 3 DOSES PRN SL Prn Chest Pain 10/20/16 19:15 11/19/16 19:14 Ondansetron HCl (Zofran) 4 mg Q6H PRN IVP Nausea & Vomiting 10/20/16 19:15 11/19/16 19:14 Polyethylene Glycol (Miralax) 17 gm HSPRN PRN ORAL Constipation 10/20/16 19:15 11/19/16 19:14 Sodium Chloride (Sodium Chloride 1000ml bag) 1,000 ml @ 100 mls/hr Q10H IVLG 10/20/16 20:00 11/19/16 19:59 10/21/16 17:24 Tamsulosin HCl 0.4 mg 0.4 mg BEDTIME ORAL 10/20/16 21:00 11/19/16 20:59 10/20/16 23:04 Temazepam (Restoril) 15 mg HSPRN PRN ORAL Insomnia 10/20/16 19:15 10/27/16 19:14 GI: Plan Problems: (1) Anemia (2) increased CEA (3) Protein-calorie malnutrition, severe (4) Uncontrolled diabetes mellitus Plan recommended EGD/colonoscopy given elevated CEA and anemia >> REFUSED by patient , wishes to go home ordered chest/a/p CT r/o mass maintain ADA diet DM mgmt bowel regime >> colace + miralax H2B GI prophylaxis outpatient colonoscopy Discussed with Dr. Ferrell. Thank you for referring this patient, we will follow. Sylvia Velazquez N.P. Oct 22, 2016 15:59
[2016-10-22 16:33] VITALS: BP 120/70
[2016-10-22] MEDS: Docusate 100mg cap ORAL SCH (18:42)
[2016-10-22 20:23] VITALS: BP 108/74
[2016-10-22] MEDS: Tamsulosin 0.4mg cap ORAL SCH (20:55)
[2016-10-22] MEDS: Miralax 17gm pkt ORAL SCH (20:56)
--- NOTE | 2016-10-22 21:45 | Geriatric Medicine Prog Note ---
DATE: 10/22/2016 SUBJECTIVE: The patient is in improved diabetic control. OBJECTIVE: VITAL SIGNS: Blood pressure 110/80, pulse 62, respiratory rate 19, and temperature 97.9. RESPIRATORY: Clear. CVS: Regular LABORATORY DATA: Glucose 100. ASSESSMENT: Diabetes mellitus, improved control. PLAN: Continue detemir insulin 25 units NovoLog 5 units t.i.d. before meals. Yasmani Real M.D. DR: ERAN JOB#: [id number] CC:
[2016-10-23 00:19] VITALS: BP 123/72
[2016-10-23 04:34] VITALS: BP 107/72
[2016-10-23] MEDS: NovoLOG Insulin Flexpen SUBQ SCH ×7 (06:30→21:49)
[2016-10-23 07:02] LABS: ANION GAP 13 (5-15); CALCIUM 8.6 mg/dL (8.6-10.2); CARBON DIOXIDE 22 mEQ/L (20-30); CHLORIDE 100 mEQ/L (98-107); CREATININE 0.5 mg/dL (0.7-1.2); GLOMERULAR FILTRATION RATE > 60 mL/min (>60); HEMOLYSIS 2; POTASSIUM 3.7 mEQ/L (3.4-4.9); SODIUM 135 mEQ/L (135-145)
[2016-10-23 07:11] LABS: EOSINOPHILS % (AUTO) 3.1 % (0.0-3.0); LYMPHOCYTES % (AUTO) 37.9 % (20.0-45.0); MEAN CORPUSCULAR HEMOGLOBIN 29.6 PG (27.0-31.0); MEAN CORPUSCULAR HGB CONC 32.8 G/DL (32.0-36.0); MEAN CORPUSCULAR VOLUME 90 FL (80-99); MEAN PLATELET VOLUME 8.9 FL (6.5-10.1); MONOCYTES % (AUTO) 5.9 % (1.0-10.0); NEUTROPHILS % (AUTO) 52.2 % (45.0-75.0); PLATELET COUNT 199 K/UL (150-450); RED BLOOD COUNT 4.16 M/UL (4.70-6.10); RED CELL DISTRIBUTION WIDTH 13.9 % (11.6-14.8); WHITE BLOOD COUNT 8.8 K/UL (4.8-10.8)
--- NOTE | 2016-10-23 08:46 | Pulmonology Progress Note ---
Assessment/Plan Assessment/Plan ASSESSMENT acute hyponatremia DOOC anemia COPD PAF HTN elevated CEA hypercholesteremia Lt trochanter stage 3, POA paraplegia 2 to spinal injury PLAN OF CARE MS floor IVF BS management wtih premeal insulin and long acting Levemir, as well as SS prn endo eval appreciated HgA1c -16.9 hypo Na w/up noted Na stable this am , depletional anemia wup with stable iron, B 12, folate CT A/P r/o malignancy O2 HHN prn pulse ox stable on RA continue ASA statin continue BB Amiodarone GI follows recommended EGD/colon due to anemia and elevated CEA but patient declined bowel regimen H2 blockers outpatient colonoscopy stressed PT/OT dc plan case discussed and evaluated by supervising physician Subjective Allergies: Coded Allergies: No Known Allergies (Unverified , 03/10/16) Subjective BS 69 this am denies chest pain, SOB endo follows Objective Last 24 Hour Vital Signs Date Time Temp Pulse Resp B/P Pulse Ox O2 Delivery O2 Flow Rate FiO2 10/23/16 04:34 98.2 77 20 107/72 99 Room Air 10/23/16 00:19 96.3 84 19 123/72 100 Room Air 10/22/16 20:55 85 108/74 10/22/16 20:23 97.5 85 20 108/74 99 Room Air 10/22/16 19:14 80 18 Room Air 10/22/16 16:33 97.2 76 18 120/70 99 Room Air 10/22/16 12:09 97.9 76 19 119/80 99 Room Air 10/22/16 10:03 80 18 Room Air 10/22/16 09:09 81 126/87 Intake and Output 10/22/16 10/23/16 19:00 07:00 # Voids 5 # Bowel Movements 3 General Appearance: no acute distress, cachetic HEENT: normocephalic, atraumatic, anicteric, mucous membranes moist Respiratory/Chest: lungs clear, no respiratory distress, no accessory muscle use Cardiovascular: normal rate, regular rhythm, no JVD Abdomen: normal bowel sounds, soft, non tender Extremities: other - paraplegia BLE Skin: other - L trochanter st 3 decub ulcer Neurologic/Psychiatric: alert, responsive Musculoskeletal: atrophy - BLE Microbiology Date/Time Source Procedure Growth Status 10/20/16 19:15 Nasal Nares MRSA Culture - Final NO METHICILLIN RESISTANT STAPH AUREUS... Complete 10/20/16 17:13 Urine,Clean Catch Urine Culture - Final Heidi Albicans Complete 10/20/16 19:15 Rectum VRE Culture - Final NO VANCOMYCIN RESISTANT ENTEROCOCCUS ... Complete Laboratory Tests 10/23/16 05:10: White Blood Count 8.8, Red Blood Count 4.16L, Hemoglobin 12.3L, Hematocrit 37.6L , Mean Corpuscular Volume 90, Mean Corpuscular Hemoglobin 29.6, Mean Corpuscular Hemoglobin Concent 32.8, Red Cell Distribution Width 13.9, Platelet Count 199, Mean Platelet Volume 8.9, Neutrophils (%) (Auto) 52.2, Lymphocytes (% ) (Auto) 37.9, Monocytes (%) (Auto) 5.9, Eosinophils (%) (Auto) 3.1H, Basophils (%) (Auto) 1.0, Sodium Level 135, Potassium Level 3.7, Chloride Level 100, Carbon Dioxide Level 22, Anion Gap 13, Blood Urea Nitrogen 14, Creatinine 0.5L, Estimat Glomerular Filtration Rate > 60, Glucose Level 67L, Calcium Level 8.6 Current Medications Medications (Trade) Dose Ordered Sig/Randell Route PRN Reason Start Time Stop Time Status Last Admin Dose Admin Acetaminophen (Tylenol) 650 mg Q4H PRN ORAL fever 10/20/16 19:15 11/19/16 19:14 Al Hydroxide/Mg Hydroxide (Mylanta II) 30 ml Q6H PRN ORAL dyspepsia 10/20/16 19:15 11/19/16 19:14 Albuterol/ Ipratropium (DuoNeb 0.5-3(2.5)mg/3ml) 3 ml EVERY 4 HOURS PRN HHN Shortness of Breath 10/20/16 19:15 10/25/16 19:14 Amiodarone HCl (Cordarone) 200 mg Q12HR ORAL 10/20/16 22:00 11/19/16 21:59 10/22/16 20:55 Aspirin (Ecotrin) 81 mg DAILY ORAL 10/21/16 09:00 11/20/16 08:59 10/22/16 09:06 Atorvastatin Calcium (Lipitor) 10 mg BEDTIME ORAL 10/20/16 22:00 11/19/16 21:59 6/15/17 20:55 Carvedilol (Coreg) 6.25 mg Q12HR ORAL 10/20/16 22:00 11/19/16 21:59 10/22/16 20:55 Clotrimazole (Lotrimin) 1 applic EVERY 12 HOURS TOPIC 10/21/16 21:00 11/20/16 20:59 10/22/16 20:59 Dextrose (Dextrose 50%) STAT PRN IV Hypoglycemia 10/21/16 12:00 11/20/16 11:59 Docusate Sodium (Colace) 100 mg THREE TIMES A DAY ORAL 10/22/16 18:00 11/21/16 17:59 10/22/16 18:42 Heparin Sodium (Porcine) (Heparin 5000 units/ml) 5,000 units EVERY 12 HOURS SUBQ 10/20/16 21:00 11/19/16 20:59 10/22/16 21:04 Insulin Aspart (NovoLOG) BEFORE MEALS AND HS SUBQ 10/20/16 22:00 11/19/16 21:59 10/22/16 21:03 Insulin Aspart (NovoLOG) 5 units NOVOTIAC SUBQ 10/21/16 11:50 11/20/16 11:49 10/22/16 17:46 Insulin Detemir (Levemir) 25 units EVERY 12 HOURS SUBQ 10/22/16 09:00 11/21/16 08:59 10/22/16 21:02 Ketorolac Tromethamine (Toradol 30mg) 30 mg EVERY 6 HOURS PRN IV moderate pain 4-6 10/20/16 19:15 10/25/16 19:14 Morphine Sulfate (Morphine Sulfate) 2 mg EVERY 4 HOURS PRN IVP severe pain 7-10 10/20/16 19:15 10/27/16 19:14 Nitroglycerin (Ntg) 0.4 mg Q5M X 3 DOSES PRN SL Prn Chest Pain 10/20/16 19:15 11/19/16 19:14 Ondansetron HCl (Zofran) 4 mg Q6H PRN IVP Nausea & Vomiting 10/20/16 19:15 11/19/16 19:14 Polyethylene Glycol (Miralax) 17 gm BEDTIME ORAL 10/22/16 21:00 11/21/16 20:59 10/22/16 20:56 Polyethylene Glycol (Miralax) 17 gm HSPRN PRN ORAL Constipation 10/20/16 19:15 11/19/16 19:14 Ranitidine HCl (Zantac) 150 mg BEDTIME ORAL 10/22/16 21:00 11/21/16 20:59 10/22/16 20:55 Sodium Chloride (Sodium Chloride 1000ml bag) 1,000 ml @ 100 mls/hr Q10H IVLG 10/20/16 20:00 11/19/16 19:59 10/21/16 17:24 Tamsulosin HCl 0.4 mg 0.4 mg BEDTIME ORAL 10/20/16 21:00 11/19/16 20:59 10/22/16 20:55 Temazepam (Restoril) 15 mg HSPRN PRN ORAL Insomnia 10/20/16 19:15 10/27/16 19:14 Marco ([facility])Tanya NP Oct 23, 2016 08:46
[2016-10-23] MEDS: Docusate 100mg cap ORAL SCH ×3 (08:49→17:36)
[2016-10-23] MEDS: Aspirin EC 81mg tab ORAL SCH (08:49)
[2016-10-23] MEDS: Amiodarone 200mg tab ORAL SCH ×2 (08:57→21:43)
[2016-10-23] MEDS: Carvedilol 6.25mg Tab ORAL SCH ×2 (08:57→21:44)
[2016-10-23] MEDS: Heparin 5000 units/ml inj SUBQ SCH ×2 (08:59→21:45)
[2016-10-23] MEDS: Levemir Flexpen SUBQ SCH ×2 (09:00→21:46)
--- NOTE | 2016-10-23 10:35 | GI Progress Note ---
Assessment/Plan Problems: (1) increased CEA (2) Anemia ICD Codes: D64.9 - Anemia, unspecified SNOMED: 867076332 (3) Protein-calorie malnutrition, severe ICD Codes: E43 - Unspecified severe protein-calorie malnutrition SNOMED: 435213043 (4) Uncontrolled diabetes mellitus ICD Codes: E11.65 - Type 2 diabetes mellitus with hyperglycemia SNOMED: 056879906 Qualifiers: Qualified Codes: E13.65 - Other specified diabetes mellitus with hyperglycemia Status: unchanged Status Narrative Discussed with Dr. Ferrell. Assessment/Plan recommended EGD/colonoscopy given elevated CEA and anemia >> REFUSED by patient , wishes to go home fu chest/a/p CT r/o mass ADA diet DM mgmt bowel regime >> colace + miralax H2B GI prophylaxis recommend outpatient colonoscopy Subjective Gastrointestinal/Abdominal: Reports: no symptoms Objective Last 24 Hour Vital Signs Date Time Temp Pulse Resp B/P Pulse Ox O2 Delivery O2 Flow Rate FiO2 10/23/16 08:57 79 138/90 10/23/16 08:10 84 18 Room Air 10/23/16 04:34 98.2 77 20 107/72 99 Room Air 10/23/16 00:19 96.3 84 19 123/72 100 Room Air 10/22/16 20:55 85 108/74 10/22/16 20:23 97.5 85 20 108/74 99 Room Air 10/22/16 19:14 80 18 Room Air 10/22/16 16:33 97.2 76 18 120/70 99 Room Air 10/22/16 12:09 97.9 76 19 119/80 99 Room Air Intake and Output 10/22/16 10/23/16 19:00 07:00 # Voids 5 # Bowel Movements 3 Laboratory Tests Test 10/23/16 05:10 White Blood Count 8.8 K/UL (4.8-10.8) Red Blood Count 4.16 M/UL (4.70-6.10) L Hemoglobin 12.3 G/DL (14.2-18.0) L Hematocrit 37.6 % (42.0-52.0) L Mean Corpuscular Volume 90 FL (80-99) Mean Corpuscular Hemoglobin 29.6 PG (27.0-31.0) Mean Corpuscular Hemoglobin Concent 32.8 G/DL (32.0-36.0) Red Cell Distribution Width 13.9 % (11.6-14.8) Platelet Count 199 K/UL (150-450) Mean Platelet Volume 8.9 FL (6.5-10.1) Neutrophils (%) (Auto) 52.2 % (45.0-75.0) Lymphocytes (%) (Auto) 37.9 % (20.0-45.0) Monocytes (%) (Auto) 5.9 % (1.0-10.0) Eosinophils (%) (Auto) 3.1 % (0.0-3.0) H Basophils (%) (Auto) 1.0 % (0.0-2.0) Sodium Level 135 mEQ/L (135-145) Potassium Level 3.7 mEQ/L (3.4-4.9) Chloride Level 100 mEQ/L (98-107) Carbon Dioxide Level 22 mEQ/L (20-30) Anion Gap 13 (5-15) Blood Urea Nitrogen 14 mg/dL (7-23) Creatinine 0.5 mg/dL (0.7-1.2) L Estimat Glomerular Filtration Rate > 60 mL/min (>60) Glucose Level 67 mg/dL (74-106) L Calcium Level 8.6 mg/dL (8.6-10.2) Height (Feet): 6 Height (Inches): 3.00 Weight (Pounds): 150 General Appearance: no apparent distress, alert Cardiovascular: normal rate Respiratory/Chest: normal breath sounds, no respiratory distress Abdominal Exam: normal bowel sounds, non tender, soft Sylvia Velazquez N.P. Oct 23, 2016 10:35
[2016-10-23 16:11] VITALS: BP 102/74
[2016-10-23 20:00] VITALS: BP 106/74
[2016-10-23] MEDS: Miralax 17gm pkt ORAL SCH (21:42)
[2016-10-23] MEDS: Tamsulosin 0.4mg cap ORAL SCH (21:44)
[2016-10-24] VITALS: BP 125/73
[2016-10-24] MEDS: NovoLOG Insulin Flexpen SUBQ SCH ×4 (06:18→12:49)
[2016-10-24 06:46] LABS: BASOPHILS % (AUTO) 1.6 % (0.0-2.0); EOSINOPHILS % (AUTO) 3.4 % (0.0-3.0); LYMPHOCYTES % (AUTO) 33.8 % (20.0-45.0); MEAN CORPUSCULAR HEMOGLOBIN 31.1 PG (27.0-31.0); MEAN CORPUSCULAR HGB CONC 34.1 G/DL (32.0-36.0); MEAN CORPUSCULAR VOLUME 91 FL (80-99); MEAN PLATELET VOLUME 9.6 FL (6.5-10.1); MONOCYTES % (AUTO) 7.4 % (1.0-10.0); NEUTROPHILS % (AUTO) 53.8 % (45.0-75.0); PLATELET COUNT 185 K/UL (150-450); RED BLOOD COUNT 3.97 M/UL (4.70-6.10); RED CELL DISTRIBUTION WIDTH 14.3 % (11.6-14.8); WHITE BLOOD COUNT 8.4 K/UL (4.8-10.8)
[2016-10-24 06:53] LABS: ANION GAP 11 (5-15); CARBON DIOXIDE 23 mEQ/L (20-30); CHLORIDE 103 mEQ/L (98-107); CREATININE 0.5 mg/dL (0.7-1.2); GLOMERULAR FILTRATION RATE > 60 mL/min (>60); HEMOLYSIS 8; SODIUM 137 mEQ/L (135-145)
[2016-10-24 08:00] VITALS: BP 133/85
[2016-10-24] MEDS ORDERED: NOVOLOG100 UNITS1 SUBQ (09:55)
[2016-10-24] MEDS ORDERED: LEVEMIR FL100 UNIT/1 SUBQ (09:55)
--- NOTE | 2016-10-24 09:58 | Pulmonology Progress Note ---
Assessment/Plan Assessment/Plan ASSESSMENT acute hyponatremia DOOC anemia COPD PAF HTN elevated CEA hypercholesteremia Lt trochanter stage 3, POA paraplegia 2 to spinal injury PLAN OF CARE MS floor IVF BS management wtih premeal insulin and long acting Levemir, as well as SS prn endo eval appreciated HgA1c -16.9 hypo Na w/up noted Na stabilized , likely depletional anemia wup with stable iron, B 12, folate CT A/P r/o malignancy O2 HHN prn pulse ox stable on RA continue ASA statin continue BB Amiodarone GI follows recommended EGD/colon due to anemia and elevated CEA but patient declined bowel regimen H2 blockers outpatient colonoscopy stressed PT/OT dc today on regimen of short acting premeal Novolog and long acting Levemir bid , further optimization of insulin regimen in SNF encourage compliance with medications case discussed and evaluated by supervising physician Subjective Allergies: Coded Allergies: No Known Allergies (Unverified , 03/10/16) Subjective BS controlled denies chest pain, SOB endo follows Objective Last 24 Hour Vital Signs Date Time Temp Pulse Resp B/P Pulse Ox O2 Delivery O2 Flow Rate FiO2 10/24/16 08:00 97.9 83 20 133/85 98 Room Air 10/24/16 07:11 76 16 Room Air 10/24/16 00:00 97.8 84 20 125/73 99 Room Air 10/23/16 21:44 88 115/74 10/23/16 20:00 97.7 88 22 106/74 100 Room Air 10/23/16 19:16 81 18 Room Air 10/23/16 16:11 98.2 83 15 102/74 99 Room Air Intake and Output 10/23/16 10/24/16 19:00 07:00 Intake Total 1600 ml 800 ml Output Total 600 ml Balance 1000 ml 800 ml Intake Oral 1600 ml 800 ml Output Urine Total 600 ml # Voids 2 4 # Bowel Movements 1 Objective General Appearance: no acute distress, cachetic HEENT: normocephalic, atraumatic, anicteric, mucous membranes moist Respiratory/Chest: lungs clear, no respiratory distress, no accessory muscle use Cardiovascular: normal rate, regular rhythm, no JVD Abdomen: normal bowel sounds, soft, non tender Extremities: other - paraplegia BLE Skin: other - L trochanter st 3 decub ulcer Neurologic/Psychiatric: alert, responsive Musculoskeletal: atrophy - BLE Laboratory Tests 10/24/16 05:45: White Blood Count 8.4, Red Blood Count 3.97L, Hemoglobin 12.3L, Hematocrit 36.1L , Mean Corpuscular Volume 91, Mean Corpuscular Hemoglobin 31.1H, Mean Corpuscular Hemoglobin Concent 34.1, Red Cell Distribution Width 14.3, Platelet Count 185, Mean Platelet Volume 9.6, Neutrophils (%) (Auto) 53.8, Lymphocytes (% ) (Auto) 33.8, Monocytes (%) (Auto) 7.4, Eosinophils (%) (Auto) 3.4H, Basophils (%) (Auto) 1.6, Sodium Level 137, Potassium Level 4.0, Chloride Level 103, Carbon Dioxide Level 23, Anion Gap 11, Blood Urea Nitrogen 11, Creatinine 0.5L, Estimat Glomerular Filtration Rate > 60, Glucose Level 134H, Calcium Level 9.0 Current Medications Medications (Trade) Dose Ordered Sig/Randell Route PRN Reason Start Time Stop Time Status Last Admin Dose Admin Acetaminophen (Tylenol) 650 mg Q4H PRN ORAL fever 10/20/16 19:15 11/19/16 19:14 Al Hydroxide/Mg Hydroxide (Mylanta II) 30 ml Q6H PRN ORAL dyspepsia 10/20/16 19:15 11/19/16 19:14 Albuterol/ Ipratropium (DuoNeb 0.5-3(2.5)mg/3ml) 3 ml EVERY 4 HOURS PRN HHN Shortness of Breath 10/20/16 19:15 10/25/16 19:14 Amiodarone HCl (Cordarone) 200 mg Q12HR ORAL 10/20/16 22:00 11/19/16 21:59 10/23/16 21:43 Aspirin (Ecotrin) 81 mg DAILY ORAL 10/21/16 09:00 11/20/16 08:59 10/23/16 08:49 Atorvastatin Calcium (Lipitor) 10 mg BEDTIME ORAL 10/20/16 22:00 11/19/16 21:59 10/23/16 21:43 Carvedilol (Coreg) 6.25 mg Q12HR ORAL 10/20/16 22:00 11/19/16 21:59 10/23/16 21:44 Clotrimazole (Lotrimin) 1 applic EVERY 12 HOURS TOPIC 10/21/16 21:00 11/20/16 20:59 10/23/16 09:00 Dextrose (Dextrose 50%) STAT PRN IV Hypoglycemia 10/21/16 12:00 11/20/16 11:59 Docusate Sodium (Colace) 100 mg THREE TIMES A DAY ORAL 10/22/16 18:00 11/21/16 17:59 10/23/16 17:36 Heparin Sodium (Porcine) (Heparin 5000 units/ml) 5,000 units EVERY 12 HOURS SUBQ 10/20/16 21:00 11/19/16 20:59 10/23/16 21:45 Insulin Aspart (NovoLOG) BEFORE MEALS AND HS SUBQ 10/20/16 22:00 11/19/16 21:59 10/23/16 21:49 Insulin Aspart (NovoLOG) 5 units NOVOTIAC SUBQ 10/21/16 11:50 11/20/16 11:49 10/23/16 17:31 Insulin Detemir (Levemir) 30 units EVERY 12 HOURS SUBQ 10/23/16 21:00 11/22/16 20:59 10/23/16 21:46 Ketorolac Tromethamine (Toradol 30mg) 30 mg EVERY 6 HOURS PRN IV moderate pain 4-6 10/20/16 19:15 10/25/16 19:14 Morphine Sulfate (Morphine Sulfate) 2 mg EVERY 4 HOURS PRN IVP severe pain 7-10 10/20/16 19:15 10/27/16 19:14 Nitroglycerin (Ntg) 0.4 mg Q5M X 3 DOSES PRN SL Prn Chest Pain 10/20/16 19:15 11/19/16 19:14 Ondansetron HCl (Zofran) 4 mg Q6H PRN IVP Nausea & Vomiting 10/20/16 19:15 11/19/16 19:14 Polyethylene Glycol (Miralax) 17 gm BEDTIME ORAL 10/22/16 21:00 11/21/16 20:59 10/23/16 21:42 Polyethylene Glycol (Miralax) 17 gm HSPRN PRN ORAL Constipation 10/20/16 19:15 11/19/16 19:14 Ranitidine HCl (Zantac) 150 mg BEDTIME ORAL 10/22/16 21:00 11/21/16 20:59 10/23/16 21:50 Tamsulosin HCl (Flomax) 0.4 mg BEDTIME ORAL 10/20/16 21:00 11/19/16 20:59 10/23/16 21:44 Temazepam (Restoril) 15 mg HSPRN PRN ORAL Insomnia 10/20/16 19:15 10/27/16 19:14 [facility] SystemTanya Talbert NP Oct 24, 2016 09:58
[2016-10-24] MEDS: Carvedilol 6.25mg Tab ORAL SCH (10:06)
[2016-10-24] MEDS: Docusate 100mg cap ORAL SCH ×2 (10:06→12:45)
[2016-10-24] MEDS: Amiodarone 200mg tab ORAL SCH (10:06)
[2016-10-24] MEDS: Aspirin EC 81mg tab ORAL SCH (10:06)
[2016-10-24] MEDS: Levemir Flexpen SUBQ SCH (10:09)
[2016-10-24] MEDS: Heparin 5000 units/ml inj SUBQ SCH (10:10)
[2016-10-24 12:00] VITALS: BP 136/75
--- NOTE | 2016-10-25 00:30 | Geriatric Medicine Prog Note ---
SUBJECTIVE: The patient has improved therapeutic control facility. OBJECTIVE: VITAL SIGNS: Stable. LUNGS: Clear. CVS: Regular. LABORATORY DATA: Glucose 176. ASSESSMENT: Diabetes mellitus, improved. PLAN: Continue Levemir 30 units q.12 hours and NovoLog 5 units t.i.d. a.c. Yasmani Real M.D. DR: ERAN JOB#: [id number] CC:
--- NOTE | 2016-10-25 23:11 | Consultation ---
History of Present Illness General Date patient seen: Oct 22, 2016 Chief Complaint: General Complaint Referring physician: JUDIT MAHAN Reason for Consultation: ELEVATED CEA Present Illness HPI 71-year-old male with hx of DM, shelter pt presents ED for evaluation of high blood sugar. the pt was found to be aggressive on the unit during the eval he was uncooperative and angry. Allergies: Coded Allergies: No Known Allergies (Unverified , 03/10/16) Medication History Scheduled Amiodarone Hcl* (Cordarone*), 200 MG ORAL TWICE A DAY, (Reported) Aspirin* (Aspir 81*), 81 MG ORAL DAILY, (Reported) Atorvastatin Calcium* (Lipitor*), 10 MG ORAL BEDTIME, (Reported) Carvedilol* (Carvedilol*), 6.25 MG ORAL BID, (Reported) Cranberry Conc/C/Bacill Coag (Cranberry Tablet), 450 MG PO TWICE A DAY, ( Reported) Digoxin* (Digoxin*), 0.25 MG PO DAILY, (Reported) Insulin Aspart (Novolog Flexpen), 5 UNITS SUBQ NOVOTIAC Insulin Detemir (Levemir Flexpen), 30 UNITS SUBQ EVERY 12 HOURS Metformin Hcl* (Metformin Hcl*), 1,000 MG ORAL BID, (Reported) Multivitamin With Minerals (Multivitamins With Minerals*), 1 TAB ORAL DAILY, ( Reported) Tamsulosin Hcl (Tamsulosin Hcl*), 0.4 MG ORAL BEDTIME, (Reported) Vitamin D (Vitamin D3), 5,000 UNITS ORAL DAILY, (Reported) Scheduled PRN Docusate Sodium* (Docusate Sodium*), 100 MG ORAL TWICE A DAY PRN for Constipation, (Reported) Magnesium Hydroxide* (Milk Of Magnesia*), 30 ML ORAL DAILY PRN for Constipation, (Reported) [Tylenol], 650 MG PO PRN PRN for Fever/Headache/Mild Pain, (Reported) Discontinued Medications Insulin Aspart (Novolog Flexpen), SUBQ AC+HS, (Reported) Discontinued Reason: Therapy completed Insulin Aspart* (Novolog*), 6 SUBQ AC, (Reported) Discontinued Reason: Therapy completed Insulin Detemir (Levemir Flexpen), 18 SUBQ Q12HR, (Reported) Discontinued Reason: Therapy completed Magnesium Oxide (Magnesium Oxide), 400 MG ORAL THREE TIMES A DAY PRN for Constipation, (Reported) Discontinued Reason: Therapy completed Tamsulosin Hcl (Tamsulosin Hcl*), 0.4 MG ORAL Q12HR, (Reported) Discontinued Reason: Therapy completed Unable to Obtain Medications (Unable To Obtain Meds), (Reported) Discontinued Reason: Therapy completed Patient History History Provided By: Patient, Medical Record, PMD Healthcare decision maker Resuscitation status Full Code Advanced Directive on File Past Medical/Surgical History Past Medical/Surgical History: (1) CAD (coronary artery disease) (2) Cardiomyopathy (3) Uncontrolled diabetes mellitus (4) Hyponatremia (5) Protein-calorie malnutrition, severe (6) Anemia (7) increased CEA Review of Systems Constitutional: Reports: malaise, weakness Psychiatric: Reports: anxiety, depressed feelings, emotional problems, prior hx Physical Exam General Appearance: alert, moderate distress, agitated, combative Neurologic: alert, normal mood/affect, depressed affect Height (Feet): 6 Height (Inches): 3.00 Weight (Pounds): 150 Assessment/Plan Status: not improved Assessment/Plan Aggressive behavior the pt is adamant against taking psychotropic meds. Aubrey Garcia M.D. Oct 25, 2016 23:11
--- NOTE | 2016-10-26 11:56 | Discharge Summary ---
Discharge Summary Hospital Course Date of Admission Oct 20, 2016 at 18:56 Date of Discharge Oct 24, 2016 at 16:22 Admitting Diagnosis hyperglycemia HPI Noam Fulton is a 71 year old male who was admitted on Oct 20, 2016 at 18 :56 for Hyperglycemia Hospital Course dc summary #[id number] Discharge Medications New Medications: Insulin Aspart (Novolog Flexpen) 100 Unit/1 Ml Insuln.pen 5 UNITS SUBQ NOVOTIAC, #1 SYR Insulin Detemir (Levemir Flexpen) 100 Unit/1 Ml Insuln.pen 30 UNITS SUBQ EVERY 12 HOURS, #1 SYR Continued Medications: Amiodarone Hcl* (Cordarone*) 200 Mg Tablet 200 MG ORAL TWICE A DAY, TAB Aspirin* (Aspir 81*) 81 Mg Tablet.dr 81 MG ORAL DAILY, TAB Atorvastatin Calcium* (Lipitor*) 10 Mg Tablet 10 MG ORAL BEDTIME, TAB Carvedilol* (Carvedilol*) 6.25 Mg Tablet 6.25 MG ORAL BID, TAB Cranberry Conc/C/Bacill Coag (Cranberry Tablet) 1 Each Tablet 450 MG PO TWICE A DAY, TAB Digoxin* (Digoxin*) 0.25 Mg/5 Ml Solution 0.25 MG PO DAILY, ML Docusate Sodium* (Docusate Sodium*) 100 Mg Capsule 100 MG ORAL TWICE A DAY PRN for Constipation, CAP Magnesium Hydroxide* (Milk Of Magnesia*) 400 Mg/5 Ml Oral.susp 30 ML ORAL DAILY PRN for Constipation, ML Multivitamin With Minerals (Multivitamins With Minerals*) 1 Each Tablet 1 TAB ORAL DAILY, TAB Tamsulosin Hcl (Tamsulosin Hcl*) 0.4 Mg Cap.er.24h 0.4 MG ORAL BEDTIME, CAP Vitamin D (Vitamin D3) 400 Unit Tablet 5000 UNITS ORAL DAILY, TAB [Tylenol] () 650 MG PO PRN PRN for Fever/Headache/Mild Pain Discharge Condition Upon Discharge: stable Discharge Disposition Patient was discharged to SNF/Subacute Facility(03) Discharge Diagnoses: Marco (Vancellieein)Tanya NP Oct 26, 2016 11:56
--- NOTE | 2016-10-26 23:45 | Discharge Summary 2 SIG ---
DATE OF ADMISSION: 10/20/2016 DATE OF DISCHARGE: 10/24/2016 The patient was admitted under Dr. Degroot. REASON FOR ADMISSION: 71-year-old male, resident of the [facility] facility with history of diabetes, chronic obstructive pulmonary disease, hypertension, and psychiatric disorder, presented for evaluation of high blood sugar. In the emergency department, he was afebrile. Pulse oximetry was stable on the room air. No leukocytosis. Stable hemoglobin and hematocrit. Glucose - 526. Anion gap - 17. Bicarbonate stable - 22. Low Na. LFTs stable. Urinalysis revealed +2 ketones, few bacteria, and pyuria. The patient was admitted for further management. ADMITTING DIAGNOSES: 1. Hyperglycemia. 2. Diabetes mellitus, out of control. 3. Severe protein-calorie malnutrition. 4. Coronary artery disease. 5. Hyponatremia HOSPITAL STAY: The patient was admitted. The patient was started on intensive regimen of short-acting and long-acting insulin. Hyponatremia workup was initiated. Anemia workup initiated. The patient was on the IV fluids. Fish Liver Sorter seen and evaluated the patient. Hemoglobin A1c- 16.9. The patient was on pre-meal short-acting insulin, long acting Levemir, as well as a sliding scale of insulin as needed. The patient will need further optimization of blood sugar as outpatient in the [facility] facility. Hyponatremia workup noted. Sodium stabilized, likely was depletional and hyponatremia resolved with IV fluids. Anemia workup revealed stable iron, B12, and folate. CT of the abdomen and pelvis was ordered to rule out occult malignancy, but the patient declined it . Supplemental oxygen and pulmonary toilet provided as needed. Pulse oximetry was stable on the room air. Aspirin and statin along with beta haylee and amiodarone were continued. Gastrointestinal specialist consult was requested. He recommended esophagogastroduodenoscopy and colonoscopy due to anemia and elevated CEA, but the patient declined. The patient started on H2 blockers. Bowel regimen instituted. Patient was encouraged to have outpatient colonoscopy. The patient was working with PT and OT. The patient was encouraged to comply with the medication regimen. Anemia was mild. Prior to discharge, hemoglobin -12.3 and hematocrit- 36.1. CEA elevated - 15.0. Blood sugar prior to discharge in the morning 201 and then 140. Urine cx + Heidi, colony count only 30-40. Wound care provided as per wound care nurse recommendation. The patient was stable for discharge,. DISCHARGE DIAGNOSES: 1. Acute hyponatremia , depletional. 2. Diabetes, out of control. 3. Anemia. 4. Chronic obstructive pulmonary disease. 5. Paroxysmal atrial fibrillation. 6. Hypertension. 7. Elevated carcinoembryonic antigen. 8. Hypercholesterolemia. 9. Left trochanter stage III, present on admission. 10. 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 DISCHARGE MEDICATIONS: See medication reconciliation list. Of note, the patient was seen and evaluated by psychiatrist, who diagnosed him with aggressive behavior since the patient exhibited aggressive behavior and anxiety and was unwilling to take any psychotropic medications. He will follow up with the psychiatrist at the [facility] facility. DISCHARGE INSTRUCTIONS: The patient is discharged to [facility] facility. Follow up with the medical doctor at the facility. Recommended psychiatric evaluation at SNF. Closely monitor blood sugar and titrate insulin doses as needed. Carlene Degroot M.D. I have been assigned to dictate discharge summary on this account and I was not involved in the patient's management. Tanya reinosocem N.PSarah DR: MARLEE JOB#: [id number] CC: ESTELLE
== END 2016-10-24 16:22 | DRG 637 ==
LOC: EDBD 15:50 → EMR 16:12 → 4E 18:56 → EDBEDREQ 20:04 → 4E 22:21
DX: E11.65 Type 2 diabetes mellitus with hyperglycemia (principal); E43 Unspecified severe protein-calorie malnutrition; L89.223 Pressure ulcer of left hip, stage 3; G82.20 Paraplegia, unspecified; I42.9 Cardiomyopathy, unspecified; I48.0 Paroxysmal atrial fibrillation; D64.9 Anemia, unspecified; T14.8 Other injury of unspecified body region; E87.1 Hypo-osmolality and hyponatremia; Z68.1 Body mass index [BMI] 19.9 or less, adult; I25.10 Atherosclerotic heart disease of native coronary artery without angina pectoris; Z79.4 Long term (current) use of insulin; J44.9 Chronic obstructive pulmonary disease, unspecified; I10 Essential (primary) hypertension; R97.0 Elevated carcinoembryonic antigen [CEA]; X58.XXXS Exposure to other specified factors, sequela; F41.9 Anxiety disorder, unspecified
CPT/HCPCS: 36415; 80048; 80053; 80061; 81003; 82009; 82378; 82607; 82746; 82962; 83036; 83540; 83550; 83615; 83735; 84443; 85007; 85025; 85044; 85060; 85610; 85651; 85730; 87081; 87086; 94664; J1815; S5561